=== PATIENT | female | born 1980 | race Caucasian/White ===

== ENCOUNTER 2017-06-13 12:17 | Emergency (ER) | payer MEDICAID ==
[~2017-06-13] VITALS: Ht 167.6 cm; Wt 88.5 kg
[2017-06-13 12:27] VITALS: BP 120/84
== END 2017-06-13 13:38 | disposition home or self-care (01) ==
LOC: ER 12:17
DX: K04.7 Periapical abscess without sinus (principal); Z88.0 Allergy status to penicillin